=== PATIENT | male | born 1985 | race Caucasian/White ===

== ENCOUNTER → 2021-05-01 17:24 | Outpatient (CLI) | payer OTHER, SELFPAY ==
--- NOTE | 2021-05-01 | DI.MRI.S_ITS ---
PROCEDURE: MR KNEE LT WO CON INDICATIONS: Other internal derangements of unspecified knee TECHNIQUE: Noncontrast sagittal PD fast spin echo and T2 fast spin echo with fat saturation, sagittal 3-D FLASH with fat saturation; coronal T1 spin echo and PD fast spin echo with fat saturation, and axial PD fast spin echo with fat saturation through the knee. COMPARISON: None. FINDINGS: Image quality: Excellent. Menisci: The medial and lateral menisci demonstrate normal morphology and internal signal. The meniscal root ligaments appear intact. Cruciate ligaments: The anterior and posterior cruciate ligaments appear intact. Medial structures: The medial collateral ligament appears intact. The semimembranosus tendon insertions and meniscocapsular junction appear intact. Visualized portions of the pes anserinus tendons appear normal. No abnormal bursal fluid. Lateral structures: There is mild sprain of the proximal fibular collateral ligament at the femoral attachment. There is partial tear of the popliteus tendon at the femoral attachment. Partial tear of lateral patellofemoral ligament/patellar retinaculum. The iliotibial band and biceps femoris tendon are intact. There is soft tissue contusion in the anterior lateral aspect of the knee joint. Anterior structures: The quadriceps and patellar tendons appear intact. Patellar alignment is normal. No femoral trochlear dysplasia or ventral trochlear prominence. No edema in the infrapatellar fat pad. Bones and cartilage: There is a small chip fracture with associated cortical irregularity and subcortical bone marrow contusion involving the lateral femoral condyle. Suspect a small fracture fragment adjacent to the lateral femoral condyle (series 11, image 18). The cartilage of the medial and lateral femorotibial compartments, as well as the patellofemoral compartment, appears normal in thickness. 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 Joint space: There is moderate knee joint effusion. No Delatorre's cyst. Normal appearing synovial plicae are incidentally noted. IMPRESSION: 1. Small chip fracture of the lateral femoral condyle. 2. Mild sprain of the proximal fibular collateral ligament. 3. Partial tear of the popliteus tendon at the femoral attachment. 4. Partial tear of the lateral patellofemoral ligament/patellar retinaculum. 5. Soft tissue contusion in the lateral aspect of the knee joint. 6. Moderate knee joint effusion. 7. Chondromalacia patella. Dictated by: Maci Hubbard M.D. on 05/04/2021 at 8:23 Approved by: Maci Hubbard M.D. on 05/04/2021 at 18:12
== END ==
PROVIDERS: Referring Provider Orthopaedic Surgery; Visit Provider Orthopaedic Surgery
DX: M25.362 Other instability, left knee (principal); M23.8X9 Other internal derangements of unspecified knee; S72.422A Displaced fracture of lateral condyle of left femur, initial encounter for closed fracture; S83.422A Sprain of lateral collateral ligament of left knee, initial encounter; S76.812A Strain of other specified muscles, fascia and tendons at thigh level, left thigh, initial encounter; S76.112A Strain of left quadriceps muscle, fascia and tendon, initial encounter; S80.02XA Contusion of left knee, initial encounter; M25.462 Effusion, left knee; M22.42 Chondromalacia patellae, left knee
CPT/HCPCS: 73721

== ENCOUNTER 2022-01-10 02:23 | Emergency (ER) | payer OTHER, SELFPAY ==
[2022-01-10 02:32] VITALS: BP 143/85; PULSE 81; RESP 16; TEMP 36.5; O2SAT 99; BMI 31.1
--- NOTE | 2022-01-10 02:40 | ED.GENADULT ---
HPI - General Adult General Chief complaint: Abdominal Pain Stated complaint: severe back pain/low right side x2 hours Time Seen by Provider: 01/10/22 02:31 Source: patient Mode of arrival: Ambulatory History of Present Illness HPI narrative: 36-year-old male who arrives to the emergency department for lower back discomfort and now discomfort at the end of his urethra. He states that the symptoms woke him from sleep a couple hours ago. He states that it was very intense middle lower back discomfort. It was so painful that it caused him to become nauseous. He did have pain medication left over from a prior back surgery which he took. He states that the lower back discomfort has improved however now he has tenderness over the tip of his penis. He did urinated home without difficulty. He has never had a kidney stone in the past. No fevers. Related Data Home Medications Medication Instructions Recorded Confirmed cyclobenzaprine 10 mg tablet 10 mg PO TIDP #0 07/17/12 diazepam 5 mg tablet (Valium) Q6H #0 12 hydrocodone 5 mg-acetaminophen 300 1 tab PO Q4HP #0 07/17/12 mg tablet (Vicodin) indomethacin 25 mg capsule 25 mg PO TIDCC #0 07/17/12 Allergies Allergy/AdvReac Type Severity Reaction Status Date / Time tramadol Allergy Verified 01/10/22 02:31 Review of Systems Constitutional Constitutional: Reports system reviewed and no additional complaints, except as documented Gastrointestinal Gastrointestinal: Reports system reviewed and no additional complaints, except as documented Genitourinary Genitourinary: Reports system reviewed and no additional complaints, except as documented Musculoskeletal Musculoskeletal: Reports system reviewed and no additional complaints, except as documented Integumentary/Breasts Skin/Breast: Reports system reviewed and no additional complaints, except as documented Hematologic/Lymphatic On Anticoagulants: No Patient History Medical History Healthy adult Social History Smoking Status: Never smoker Smoking Status: Never smoker Substance Use Type: does not use Exam Initial Vital Signs Initial Vital Signs: Vital Signs Temperature 97.7 F 01/10/22 02:32 Pulse Rate 81 01/10/22 02:32 Respiratory Rate 16 01/10/22 02:32 Blood Pressure 143/85 H 01/10/22 02:32 Pulse Oximetry 99 01/10/22 02:32 Const General: cooperative, comfortable and well developed HENMT Head: normal to inspection and normocephalic Resp Effort & Inspection: normal respiratory effort Cardio Rate: regular rate GI Inspection: normal to inspection Palpation: soft and No tender Skin General: no rashes or lesions noted Neuro General: patient alert, patient awake and moves all extremities Extrem General: normal to inspection Course Orders Ordered: ED Orders 01/10/22 03:00 Urinalysis and Microscopic Stat 01/10/22 03:54 CT kidney ureter bladder (KUB) Stat Discontinued Medications Hydrocodone Bitart/Acetaminophen (Hydrocodone/Acet 5/325 Prepack) 1 bottle MISC SEEINSTR ONE Stop: 01/10/22 05:08 Last Admin: 01/10/22 05:20 Dose: 1 bottle Documented by: Hydromorphone HCl (Hydromorphone 1 Mg Inj) 1 mg IM NOW ONE Stop: 01/10/22 03:55 Last Admin: 01/10/22 04:05 Dose: 1 mg Documented by: RICHIE Ondansetron HCl (Ondansetron 4 Mg Odt Prepack) 1 bottle MISC SEEINSTR ONE Stop: 01/10/22 05:08 Last Admin: 01/10/22 05:21 Dose: 1 bottle Documented by: Vital Signs Vital signs: Vital Signs - 8 hr 01/10/22 02:32 01/10/22 05:27 Temperature 97.7 F Pulse Rate 81 74 Respiratory Rate 16 18 Blood Pressure 143/85 H 132/61 Pulse Oximetry 99 98 Medical Decision Making Lab Data Labs: Lab Results 01/10/22 Range/Units 03:00 Urine Color Yellow Urine Appearance Sl cloudy Urine pH 6.0 (4.5-8.0) Ur Specific [place] 1.025 (1.000-1.035) Urine Protein Trace H (Negative) Urine Glucose (UA) Negative (Negative) g/dL Urine Ketones Trace H (NEGATIVE) Urine Occult Blood 3+ H (Negative) Urine Nitrate Negative (Negative) Urine Bilirubin Negative (NEGATIVE) Urine Urobilinogen 0.2 (0.2) E.U./dL Ur Leukocyte Esterase Negative (NEGATIVE) Urine RBC 30-100/hpf H (0-5/HPF) Urine WBC None seen (0-5/HPF) Urine Bacteria None seen (None) Ur Culture Indicated? Cult not indicated Imaging Data CT scan - abdomen/pelvis: My Impression: Right-sided distal ureteral stone MDM Narrative Medical decision making narrative: Patient's history and physical exam consistent with renal colic. He has blood in his urine with no signs of infection. He did feel better after above-stated treatments. CT scan shows right-sided distal ureteral stone. I did discuss this with the patient. We discussed follow-up instructions return precautions. He expressed understanding and agreement. Discharge Plan Departure Patient Disposition: Home Clinical Impression: Right ureteral stone Instructions: DI for Kidney Stones Activity Restrictions/Additional Instructions: Take the nausea and pain medication as needed. Be sure to stay hydrated. Return to the emergency department for any new symptoms to include fevers, pain that is not controlled the medication, inability to urinate her any other new or worsening symptoms. Prescriptions: No Action hydrocodone-acetaminophen [Vicodin] 5 MG/300 MG tablet 1 tab PO Q4HP Qty: 0 0RF cyclobenzaprine 10 MG tablet 10 mg PO TIDP Qty: 0 0RF indomethacin 25 MG capsule 25 mg PO TIDCC Qty: 0 0RF diazepam [Valium] 5 MG tablet Q6H Qty: 0 0RF
[2022-01-10 03:06] LABS: Bilirubin Urine UA NEGATIVE (NEGATIVE); Color Urine UA YELLOW; Glucose Urine UA NEGATIVE (Negative); Ketones Urine UA TRACE (NEGATIVE); Leukocyte Esterase Urine UA NEGATIVE (NEGATIVE); Nitrite Urine UA NEGATIVE (Negative); Occult Blood Urine UA 3+ (Negative); Protein Urine UA TRACE (Negative); Specific Gravity Urine UA 1.025 (1.000-1.035); Urobilinogen Urine UA 0.2 E.U./dL (0.2)
[2022-01-10 03:07] LABS: Appearance Urine UA SL CLOUDY
[2022-01-10 03:22] LABS: Bacteria Urine None Seen; RBC Urine 30-100/HPF (0-5/HPF); WBC Urine None Seen (0-5/HPF)
[2022-01-10 03:23] LABS: Culture Indicated Urine Cult Not Indicated
--- NOTE | 2022-01-10 03:54 | DI.CT.S_ITS ---
PROCEDURE: CT KIDNEY URETER BLADDER (KUB) INDICATIONS: R flank pain eval for stone TECHNIQUE: Axial sections were acquired from the lung bases to the pubic symphysis. Coronal and sagittal reformats were performed. For radiation dose reduction, the following was used: automated exposure control, adjustment of mA and/or kV according to patient size. COMPARISON: None. FINDINGS: Image quality: Excellent. Lung bases: Unremarkable. Small hiatal hernia. Heart: No significant findings. URINARY: Right Kidney: Trace right renal pelviectasis. No stones. Right Ureter: Trace ureterectasis. Left Kidney: No stones or hydronephrosis. Left Ureter: No hydroureter. Bladder: There is a 2 mm stone at the right UVJ. Normal wall thickness. ABDOMEN: Liver: Unremarkable. Gallbladder: Unremarkable. Biliary ducts: Unremarkable. Pancreas: Unremarkable. Spleen: Unremarkable. Adrenal Glands: Unremarkable. Stomach and Bowel: Stomach, small bowel loops, and colon are unremarkable. Peritoneum: No abnormal intraperitoneal fluid. No free air. Ventral Wall: No hernia. Abdominal Nodes: No enlarged retroperitoneal or mesenteric lymph nodes. Vessels: Aorta and inferior vena cava are normal in size. PELVIS: Pelvic Organs: Unremarkable. Pelvic Nodes: Unremarkable. Miscellaneous: No inguinal hernias are seen. Bones: Unremarkable. IMPRESSION: 1. A 2 mm obstructive stone at the right UVJ. There is trace right renal pelviectasis and ureterectasis. No significant discrepancy with the night monitor radiology preliminary report. Dictated by: Maci Hubbard M.D. on 01/10/2022 at 8:07 Approved by: Maci Hubbard M.D. on 01/10/2022 at 8:10
[2022-01-10] MEDS: HYDROMORPHONE 1 MG INJ IM (04:05)
[2022-01-10] MEDS: HYDROCODONE/ACET 5/325 PREPACK 1 BOTTLE MISC (05:20)
[2022-01-10] MEDS: ONDANSETRON 4 MG ODT PREPACK 1 BOTTLE MISC (05:21)
[2022-01-10 05:27] VITALS: BP 132/61; PULSE 74; RESP 18; O2SAT 98
== END 2022-01-10 05:27 | disposition home or self-care (01) ==
PROVIDERS: Emergency Provider Emergency Medicine
DX: N20.1 Calculus of ureter (principal)
CPT/HCPCS: 74176; 81001; 96372; 99284; J1170